=== PATIENT | female | born 1955 | race Native Hawaiian/Other Pacific Islander ===

== ENCOUNTER 2020-07-04 09:02 | Outpatient (CLI) | payer OTHER | END 2020-07-04 19:06 | disposition home or self-care (01) | LOC: LABW 09:02 | DX: R19.7 Diarrhea, unspecified (principal) | CPT/HCPCS: 82272; 83630; 87015; 87045; 87324; 87328; 87329; 87449; 87899 ==

== ENCOUNTER 2020-09-09 13:08 | Outpatient (CLI) | payer OTHER | END 2020-09-09 21:56 | disposition home or self-care (01) | LOC: LABW 13:08 | PROVIDERS: ATTEND Internal Medicine Gastroenterology | DX: K59.1 Functional diarrhea (principal) | CPT/HCPCS: 82705; 83630; 87015; 87045; 87324; 87328; 87329; 87449; 87899 ==

== ENCOUNTER 2021-05-26 08:55 | Outpatient (CLI) | payer OTHER | END 2021-05-26 19:07 | disposition home or self-care (01) | LOC: RAD 08:55 | PROVIDERS: ATTEND Physician Assistant | DX: J45.30 Mild persistent asthma, uncomplicated (principal) ==

== ENCOUNTER 2021-12-16 10:05 | Outpatient (CLI) | payer OTHER | END 2021-12-16 19:16 | disposition home or self-care (01) | LOC: RAD 10:05 | PROVIDERS: ATTEND Internal Medicine | DX: N95.8 Other specified menopausal and perimenopausal disorders (principal) ==

== ENCOUNTER 2022-02-03 14:31 | Outpatient (CLI) | payer OTHER | END 2022-02-03 18:53 | disposition home or self-care (01) | LOC: RESP 14:31 | PROVIDERS: ATTEND Internal Medicine | DX: R00.2 Palpitations (principal); R06.02 Shortness of breath; G47.33 Obstructive sleep apnea (adult) (pediatric); I48.91 Unspecified atrial fibrillation | CPT/HCPCS: 93225 ==

== ENCOUNTER 2022-03-18 07:58 | Outpatient (CLI) | payer OTHER ==
[~2022-03-18] VITALS: Ht 165.1 cm; Wt 98.0 kg
== END 2022-03-18 19:03 | disposition home or self-care (01) ==
LOC: NM 07:58
PROVIDERS: ATTEND Internal Medicine
DX: R07.9 Chest pain, unspecified (principal); R06.02 Shortness of breath
CPT/HCPCS: A9500; J2785